=== PATIENT | male | born 1970 | race American Indian/Alaskan Native ===

== ENCOUNTER 2018-11-11 07:50 | Emergency (ER) | payer SELFPAY ==
[2018-11-11] MEDS ORDERED: methylPREDNISolone Sod Succinate 125 MG/2 ML INJ IM ONE (08:59)
[2018-11-11] MEDS ORDERED: ALBUTEROL 2.5 MG/3 ML NEBU IH ONE (08:59)
--- NOTE | 2018-11-11 08:59 | Emergency Department Report ---
Minor Respiratory - HPI Chief Complaint: Adult Asthma Stated Complaint: ASTHMA ATTACK Time Seen by Provider: 11/11/18 08:47 Duration: 2 Days Pain Location: Chest Severity: mild Minor Respiratory: Yes Able to Tolerate Fluids, Yes Cough, Yes Shortness of Breath, No Rhinorrhea, No Sore Throat, No Ear Pain, No Sick Contacts, No Hemoptysis, No Chest Pain, No Fever Other History: She is a 48-year-old male who comes to the ER today complaining of wheezing. He is currently out of his asthma medications. Patient has no fever. He denies purulent sputum. He has not seen his PCP. ED Review of Systems ROS: Stated complaint: ASTHMA ATTACK Other details as noted in HPI Comment: All other systems reviewed and negative ED Past Medical Hx - Past Medical History Hx Asthma: Yes - Surgical History Past Surgical History?: No - Family History Family history: no significant - Social History Smoking Status: Former Smoker Substance Use Type: None - Medications Home Medications: Home Medications Medication Instructions Recorded Confirmed Last Taken Type Azithromycin [Zithromax Z-PRAKASH] 250 mg PO DAILY #10 tab 12/09/12 02/13/13 Unknown Rx Prednisone 40 mg PO QDAY #10 tablet 12/09/12 02/13/13 Unknown Rx ALBUTEROL Inhaler (OR & NICU) 2 puff IH QID PRN #1 inhalation 02/13/13 Unknown Rx [ProAir HFA Inhaler] predniSONE [Deltasone] 40 mg PO QDAY #5 tablet 02/13/13 Unknown Rx ALBUTEROL Inhaler (OR & NICU) 2 puff IH QID PRN #1 inhalation 11/11/18 Unknown Rx [ProAir HFA Inhaler] Cetirizine HCl [ZyrTEC] 10 mg PO DAILY #30 capsule 11/11/18 Unknown Rx predniSONE [Deltasone] 20 mg PO DAILY #5 tablet 11/11/18 Unknown Rx Minor Respiratory Exam - Exam General: Vital signs noted. No distress. Alert and acting appropriately. HEENT: Yes Moist Mucous Membranes, No Pharyngeal Erythema, No Pharyngeal Exudates, No Rhinorrhea, No Conjuctival Injection, No Frontal Tenderness, No Maxillary Tenderness Ear: Neither TM Bulge, Neither TM Erythema, Neither EAC Pain, Neither EAC Discharge Neck: Yes Supple, No Adenopathy Lungs: Yes Good Air Exchange, Yes Wheezes, No Ronchi, No Stridor Heart: Yes Regular Abdomen: No Tenderness Skin: No Rash, No Edema Neurologic: Alert and oriented, no deficits. Musculoskeletal: Unremarkable. ED Course Vital Signs 11/11/18 08:07 Temperature 98.2 F Pulse Rate 75 Respiratory 18 Rate Blood Pressure 139/94 O2 Sat by Pulse 95 Oximetry ED Medical Decision Making - Medical Decision Making no fever ambulatory wheezing on exam solumedrol and duoneb no purulent sputum no fever ambulatory and non toxic on exam Vital Signs 11/11/18 08:07 Temperature 98.2 F Pulse Rate 75 Respiratory 18 Rate Blood Pressure 139/94 O2 Sat by Pulse 95 Oximetry - Differential Diagnosis asthma w or wo infection Critical care attestation.: If time is entered above; I have spent that time in minutes in the direct care of this critically ill patient, excluding procedure time. ED Disposition Clinical Impression: Asthmatic bronchitis with exacerbation Disposition: DC-01 TO HOME OR SELFCARE Is pt being admited?: No Does the pt Need Aspirin: No Condition: Stable Instructions: Asthma (ED) Additional Instructions: FOLLOW UP WITH PCP REFERRAL BELOW MEDS ORDERED TODAY Prescriptions: predniSONE [Deltasone] 20 mg PO DAILY #5 tablet ALBUTEROL Inhaler (OR & NICU) [ProAir HFA Inhaler] 2 puff IH QID PRN #1 inhalation PRN Reason: Shortness Of Breath Cetirizine HCl [ZyrTEC] 10 mg PO DAILY #30 capsule Referrals: PRIMARY CARE, [Primary Care Provider] - 3-5 Days GILDA BUTLER MD [Staff Physician] - 3-5 Days Time of Disposition: :13
[2018-11-11 09:34] VITALS: BP 136/100
== END 2018-11-11 09:54 | disposition home or self-care (01) ==
LOC: ED 07:50
DX: J45.901 Unspecified asthma with (acute) exacerbation (principal); Z87.891 Personal history of nicotine dependence; Z79.899 Other long term (current) drug therapy
CPT/HCPCS: 94640; 96372; 99282; J2930